=== PATIENT | female | born 1950 | race Caucasian/White ===

== ENCOUNTER 2017-01-19 21:16 | Observation (INO) | payer MEDICARE, OTHER ==
[~2017-01-19 21:16] MED LIST: ISOVUE-370 76%-LOCM 1 ML ONE
[2017-01-19 21:47] LABS: #Eosinphils 0.1 thou/uL (0.0-0.7); #Lymphocytes 1.7 thou/uL (1.20-3.40); #Monocytes 0.5 thou/uL (0.11-0.59); #Neutrophils 6.3 thou/uL (1.40-6.50); %Basophils 0.5 % (0.0-1.0); %Eosinophils 1.4 % (0.0-10.0); %Lymphocytes 20.1 % (21.0-51.0); %Monocytes 5.3 % (0.0-10.0); Hematocrit 36.9 % (36.0-47.0); Mean Platelet Volume 9.8 fL (7.4-10.4); Red Blood Cell (RBC) Count 4.28 mill/uL (4.20-5.40); White Blood Cell (WBC) Count 8.7 thou/uL (4.8-10.8)
[2017-01-19] MEDS ORDERED: Ondansetron HCl/PF 4 MG/2 ML Vial ONE (21:56)
[2017-01-19 21:57] LABS: ALT (SGPT) 34 U/L (8-55); AST (SGOT) 36 U/L (5-34); Alkaline Phosphatase 139 U/L (40-150); Anion Gap 19 mmol/L (10-20); BUN (Urea Nitrogen) 21 mg/dL (9.8-20.1); Bilirubin, Total 0.5 mg/dL (0.2-1.2); Calc. Creatinine Clearance 0 mL/min (70-130); Calcium 9.1 mg/dL (7.8-10.44); Carbon Dioxide 19 mmol/L (23-31); Chloride 105 mmol/L (98-107); Estimated GFR-MDRD 23; Globulin 3.5 g/dL (2.4-3.5); Lipase 30 U/L (8-78); Protein, Total 7.6 g/dL (6.0-8.3)
[2017-01-19 22:02] LABS: Troponin I Less than 0.010 ng/mL (< 0.028)
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
[2017-01-19 22:24] LABS: Prothrombin Time 12.1 SEC (12.0-14.7)
--- NOTE | 2017-01-19 22:24 | CT ---
CHEST CT SCAN WITH IV CONTRAST ABDOMEN AND PELVIC CT SCAN WITH IV CONTRAST THORACIC SPINE CT SCAN WITH IV CONTRAST LIMITED LUMBAR SPINE CT SCAN WITH IV CONTRAST LIMITED 01/19/17 HISTORY: 66-year-old female with left sided pain, shortness of breath. There appears to be some increased soft tissue density over the region of the medial aspect of the l eft clavicle. The left clavicle is not completely seen on this study but the visualized portion at t he sternoclavicular joint does not show an obvious acute fracture. There is no mediastinal hematoma. No pneumothorax or other significant acute posttraumatic process in the chest. The liver, pancreas, spleen are unremarkable. The kidneys show some small cysts and some small renal cortical scars but no evidence for acute posttraumatic process. No free intraperitoneal fluid or re troperitoneal hematoma. Postop changes are noted of the lower lumbar spine including L3, L4, L5 and S1. IMPRESSION: Some soft tissue swelling at the region of the medial clavicle but without an obvious fracture altho ugh the complete clavicle is not seen. Some small renal cysts and some renal cortical scarring but n o evidence for acute posttraumatic process in the chest, abdomen, or pelvis. THORACIC SPINE CT SCAN WITH IV CONTRAST LIMITED: IMPRESSION: Extensive multilevel disc osteophytosis throughout the thoracic spine particularly caudally but no e vidence for an acute fracture. LUMBAR SPINE CT SCAN WITH IV CONTRAST LIMITED: Status post laminectomy and pedicle screw placement changes at L3, L4, L5, and S1. Considerable cierra ccation changes in the L1-L2 and L2-L3 discs. Severe facet arthrosis. No evidence for acute fracture or dislocation. IMPRESSION: Postop laminectomy and pedicle screw placement changes at L3, L4, L5, and S1. Severe lumbar spine sp ondylosis. No evidence for acute fracture. Findings of the cervical spine CT scan as well as the chest, abdomen and pelvic CT scan were discuss ed with Dr. Valenzuela by phone at 10:08 p.m. Code CR POS: [facility]
--- NOTE | 2017-01-19 23:07 | RAD ---
LEFT SHOULDER THREE VIEWS: 01/19/17 HISTORY: 66-year-old female with left shoulder pain. There appears to be some soft tissue swelling over the left supraclavicular region. No evidence for acute fracture or dislocation. IMPRESSION: Left supraclavicular soft tissue swelling without overt acute fracture or dislocation. POS: [facility]
[2017-01-19] MEDS ORDERED: traMADol HCl 50 MG TAB ONE (23:25)
[2017-01-20 01:29] LABS: Bilirubin Negative (Negative); Blood, Urine Negative (Negative); Glucose, Urine (Dipstick) >=1000 mg/dL (Negative); Ketone, Urine Negative (Negative); Nitrite Negative (Negative); Protein, Urine (Dipstick) Negative (Neg-Trace); Urobilinogen 0.2 mg/dL (0.2-1.0)
[2017-01-20 01:31] LABS: Bacteria/HPF None Seen HPF (None Seen); Hyaline Casts/LPF 0-3 HYALINE CAST LPF (0-3 Hyaline); RBC/HPF 0-3 HPF (0-3); Squamous Epithelial None Seen HPF (0-3); WBC/HPF 0-3 HPF (0-3)
[2017-01-20] MEDS ORDERED: HYDROcodone/Acetaminophen 5/325 mg Tablet PO PRN (02:56)
[2017-01-20] MEDS ORDERED: Morphine Sulfate 2 MG/ML SYRINGE IVP PRN (02:56)
[2017-01-20] MEDS ORDERED: traMADol HCl 50 MG TAB PO PRN (02:56)
[2017-01-20] MEDS ORDERED: Acetaminophen 500 MG TAB PO PRN ×2 (02:56→07:45)
[2017-01-20] MEDS ORDERED: Ondansetron HCl/PF 4 MG/2 ML Vial IVP PRN (02:56)
[2017-01-20] MEDS ORDERED: Dextrose 5% in Water 1,000 ML IV PRN (02:56)
[2017-01-20] MEDS ORDERED: Dextrose 50% Abboject 50 ML SYRINGE SLOW IVP PRN (02:56)
[2017-01-20] MEDS ORDERED: Ondansetron ODT 4 MG TAB PO PRN (02:56)
[2017-01-20] MEDS: Sodium Chloride 0.9% 1,000 ML IV SCH ×3 (03:24→04:15)
[2017-01-20 03:53] VITALS: BMI 30.2
[2017-01-20] MEDS: Insulin Regular 300 UNITS/3 ML VIAL SC PRN ×2 (05:52→10:57)
[2017-01-20 08:24] VITALS: BP 112/71; TEMP 98.1
[2017-01-20 09:56] LABS: #Basophils 0.1 thou/uL (0.0-0.2); #Eosinphils 0.1 thou/uL (0.0-0.7); #Lymphocytes 1.2 thou/uL (1.20-3.40); #Monocytes 0.6 thou/uL (0.11-0.59); #Neutrophils 5.9 thou/uL (1.40-6.50); %Basophils 0.7 % (0.0-1.0); %Eosinophils 0.9 % (0.0-10.0); %Lymphocytes 15.6 % (21.0-51.0); %Monocytes 7.9 % (0.0-10.0); Hematocrit 35.4 % (36.0-47.0); Mean Platelet Volume 9.3 fL (7.4-10.4); Red Blood Cell (RBC) Count 4.04 mill/uL (4.20-5.40); White Blood Cell (WBC) Count 7.9 thou/uL (4.8-10.8)
[2017-01-20 10:29] LABS: Anion Gap 15 mmol/L (10-20); BUN (Urea Nitrogen) 22 mg/dL (9.8-20.1); Calc. Creatinine Clearance 67 mL/min (70-130); Calcium 8.6 mg/dL (7.8-10.44); Carbon Dioxide 20 mmol/L (23-31); Chloride 106 mmol/L (98-107); Estimated GFR-MDRD 41
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
== END 2017-01-20 12:08 | disposition home or self-care (01) ==
LOC: ERS 21:16 → SURG A 01-20 01:46
PROVIDERS: ADMIT Specialist; ATTEND Specialist
DX: T14.8 Other injury of unspecified body region (principal); G89.11 Acute pain due to trauma; N28.9 Disorder of kidney and ureter, unspecified; I10 Essential (primary) hypertension; E11.36 Type 2 diabetes mellitus with diabetic cataract; Z91.040 Latex allergy status; Z88.8 Allergy status to other drugs, medicaments and biological substances; Z98.890 Other specified postprocedural states; Z90.710 Acquired absence of both cervix and uterus; Z96.651 Presence of right artificial knee joint; V89.2XXA Person injured in unspecified motor-vehicle accident, traffic, initial encounter
CPT/HCPCS: 71260; 72125; 73030; 74176; 74177; 80048; 80053; 82553; 82962; 83690; 84484; 85025 ×2; 85610; 85730; 93005; 96361; 96374; 99285; G0378; 36415; 36416; 81003; 81015; G0390; J2405

== ENCOUNTER 2017-12-10 06:53 | Day surgery (SDC) | payer MEDICARE ==
[2017-12-09 14:59] VITALS: BMI 29.1
--- NOTE | 2017-12-10 05:38 | HP ---
SHORT STAY AND HISTORY AND PHYSICAL HISTORY OF PRESENT ILLNESS: Ms. Jessenia Murillo is a very pleasant 67-year-old female wit h history of colon polyp with previous polypectomy. The patient has no specific GI symptoms at the p resent time. The patient came here for colonoscopy last year, but the exam was suboptimal because of retained stool. The patient had a very large polyp taken out in the past. However, because of poor prep, the exam was somewhat suboptimal. The patient brought in today for repeat colonoscopy because of the history of colon polyp and also history of rectal bleeding. ALLERGIES: ASPIRIN and also allergic to ADHESIVE BANDAGES. MEDICAL ILLNESSES: 1. Hypertension. 2. Diabetes mellitus. 3. Hyperlipidemia. 4. Bleeding peptic ulcer in the past. 5. Colon polyp. PHYSICAL EXAMINATION: VITAL SIGNS: Pulse is 70, blood pressure 130/80. HEENT: Conjunctivae clear. CARDIOVASCULAR SYSTEM: First and second heart sounds normal. LUNGS: Clear to auscultation. ABDOMEN: Soft to palpate. No organomegaly. No tenderness. No masses. ADMITTING DIAGNOSIS: A 67-year-old female with history of colon polyps and also rectal ble eding. PLAN: Colonoscopy.
--- NOTE | 2017-12-10 10:28 | OP ---
DATE OF PROCEDURE: 12/10/2017 PREOPERATIVE DIAGNOSIS: Colon polyp. POSTOPERATIVE DIAGNOSES: 1. Sessile polyp, splenic flexure. 2. Sessile polyp, sigmoid colon. 3. Hemorrhoids. OPERATIVE PROCEDURE: Colonoscopy with polypectomy. PROCEDURE NOTE: The patient was placed on left lateral position and was given sedation by the Anesth esia Department. A rectal exam was done before the scope was advanced into the rectum. No lesion fe lt on rectal exam. A Pentax video colonoscope was introduced into the rectum and advanced all the wa y into the cecum. The prep was very good. The mucosa appears normal throughout the colon with filiberto l vascular pattern. The appendiceal orifice, ileocecal valve, cecum, no pathology seen. The ascendi ng colon, hepatic flexure, and transverse colon, no pathology seen. A sessile polyp in the splenic f lexure removed with snare cautery with good hemostasis. The descending colon, no pathology seen. A sessile polyp over the sigmoid colon removed with snare cautery with good hemostasis. Retroflexion o f the scope in the rectum showed small hemorrhoids. DISCHARGE PLANNING: This is a 67-year-old female with previous colonoscopy and polypectomy . The patient came for a followup colonoscopy. She underwent colonoscopy and polypectomy x2. DISCHARGE RECOMMENDATIONS: 1. The patient advised to call me if she developed abdominal pain, hematochezia or fever. 2. In the absence of any of the above symptoms, she is to come back to me in 2 weeks.
[2017-12-10] MEDS ORDERED: Glycopyrrolate 0.2 MG/ML 5 ML SYRINGE ONE (13:43)
[2017-12-10] MEDS ORDERED: ePHEDrine/0.9% NaCl/PF SYRINGE 50 mg/10 ml ONE (13:43)
[2017-12-10] MEDS ORDERED: PROPOFOL 200 MG/20 ML VIAL ONE (13:43)
[2017-12-10] MEDS ORDERED: Lidocaine 1% PF 5 ML VIAL ONE (13:43)
== END 2017-12-10 10:31 | disposition home or self-care (01) ==
LOC: SDC 06:53
PROVIDERS: ATTEND Internal Medicine Gastroenterology
PROC: 0DBH8ZX Excision of Cecum, Via Natural or Artificial Opening Endoscopic, Diagnostic (ICD-10-PCS; principal; 2017-12-10)
PROC: 0DBL8ZX Excision of Transverse Colon, Via Natural or Artificial Opening Endoscopic, Diagnostic (ICD-10-PCS; 2017-12-10)
DX: Z09 Encounter for follow-up examination after completed treatment for conditions other than malignant neoplasm (principal); D12.3 Benign neoplasm of transverse colon; D12.5 Benign neoplasm of sigmoid colon; K64.9 Unspecified hemorrhoids; I10 Essential (primary) hypertension; E11.9 Type 2 diabetes mellitus without complications; E78.5 Hyperlipidemia, unspecified; Z86.010 Personal history of colon polyps; Z79.4 Long term (current) use of insulin; Z79.899 Other long term (current) drug therapy; Z88.8 Allergy status to other drugs, medicaments and biological substances; Z91.040 Latex allergy status; Z98.890 Other specified postprocedural states
CPT/HCPCS: 88305; J2001; J2704

== ENCOUNTER 2018-10-16 09:48 | Outpatient (CLI) | payer MEDICARE ==
--- NOTE | 2018-10-16 11:27 | ULT ---
RENAL ULTRASOUND: HISTORY: Chronic renal disease. FINDINGS: Multiple longitudinal and transverse images of the kidneys are obtained using MultiHertz curvilinear transducer. Real-time, color flow and spectral waveform Doppler analysis demonstrates the right kidney to measure 10.0 and left kidney 10.6 cm from pole to pole. No evidence of renal parenchymal masses or lesions seen. Resistive indices on the right measures 0.7 and on the left 0.8. This may represent left renal artery stenosis. Correlate with CT angiography. The urinary bladder is unremarkable. IMPRESSION: Elevated resistive index on the left possibly presenting renal artery stenosis. Correlate with CT ang iography. Transcribed Date/Time: 10/16/2018 11:35 AM
--- NOTE | 2018-10-16 11:40 | MMO ---
Bilateral MAMMO Bilat Screen [facility]. CLINICAL HISTORY: Patient is 68 years old and is seen for screening. The patient has no family history of breast cancer. The patient has no personal history of cancer. VIEWS: The views performed were: bilateral craniocaudal with tomosynthesis and bilateral mediolateral oblique with tomosynthesis. FILMS COMPARED: The present examination has been compared to prior imaging studies performed at [facility] on 04/28/2015 and 12/19/2016. MAMMOGRAM FINDINGS: There are scattered fibroglandular densities. Finding 1: There are stable benign appearing calcifications seen in both breasts. Finding 2: There are stable focal asymmetries seen in both breasts. There are no suspicious masses, suspicious calcifications, or new areas of architectural distortion. IMPRESSION: THERE IS NO MAMMOGRAPHIC EVIDENCE OF MALIGNANCY. A ROUTINE FOLLOW-UP MAMMOGRAM IN 1 YEAR IS RECOMMENDED. THE RESULTS OF THIS EXAM WERE SENT TO THE PATIENT. ACR BI-RADS Category 2 - Benign finding MAMMOGRAPHY NOTE: 1. A negative mammogram report should not delay a biopsy if a dominant of clinically suspicious mass is present. 2. Approximately 10% to 15% of breast cancers are not detected by mammography. 3. Adenosis and dense breasts may obscure an underlying neoplasm.
--- NOTE | 2018-10-16 11:41 | RAD ---
Exam: Chest one view HISTORY:Hypertension, chronic kidney disease, stage III Comparison: None FINDINGS: Lungs: There are biapical parenchymal opacities, left greater than right Cardiac silhouette: Normal size Pulmonary vessels: Normal Pleural Spaces: Clear Pneumothorax: None Osseous abnormalities: None of acuity. IMPRESSION: Biapical opacities, left greater than right. Findings are nonspecific. Considerations wou ld include atypical pneumonia, interval development of apical pleural thickening/scarring, or alternatively pneumoconiosis given bilateral upper lobe distribution. Recommend short-term follow-up upon completion of treatment regimen with 2 view chest for continued assessment. CODE T
--- NOTE | 2018-10-16 14:50 | BD ---
DEXA BONE DENSITY EXAM: COMPARISON: 12/19/2016. HISTORY: A 68-year-old postmenopausal female for screening. FINDINGS: BMD (g/cm2) LEFT: Femoral Neck: 0.832 T-Score: -0.2 Total Proximal Femur: 1.038 T-Score: 0.8 RIGHT: Femoral Neck: 0.706 T-Score: -1.3 Total Proximal Femur: 0.974 T-Score: 0.3 Impression: Osteopenia. This patient has a 10-year WHO fracture risk of a major osteoporotic fracture of 18% and of a hip fracture of 2.4%. When compared to the prior examination, bone density in the right hip ibarra s increased approximately 6%. The bone density in the left hip has not changed significantly. POS: [facility]
== END 2018-10-16 09:49 | disposition home or self-care (01) ==
LOC: BICULT 09:48
PROVIDERS: ATTEND Internal Medicine Nephrology
DX: Z12.31 Encounter for screening mammogram for malignant neoplasm of breast (principal); I12.9 Hypertensive chronic kidney disease with stage 1 through stage 4 chronic kidney disease, or unspecified chronic kidney disease; N18.3 Chronic kidney disease, stage 3 (moderate); D63.1 Anemia in chronic kidney disease; J98.4 Other disorders of lung; M85.89 Other specified disorders of bone density and structure, multiple sites
CPT/HCPCS: 71045; 76700; 76770; 77063; 77067; 77080

== ENCOUNTER 2018-11-19 13:32 | Outpatient (CLI) | payer MEDICARE ==
--- NOTE | 2018-11-19 15:18 | CT ---
CT OF THE CHEST WITHOUT CONTRAST: 11/19/18 COMPARISON: Chest x-ray 10/16/18. Mammograms of 10/16/18 and 12/19/16. HISTORY: Abnormal chest x-ray. TECHNIQUE: Multiple contiguous axial images were obtained in a CT of the chest without contrast. Sagittal and co jag reformats were performed. FINDINGS: The lungs are normal in appearance without focal infiltrates or masses. No pneumothorax or pleural ef fusion are seen. The heart is normal in size. Atherosclerotic calcifications seen in the coronary arteries. No hilar o r mediastinal lymphadenopathy are appreciated on this limited noncontrast examination. Degenerative changes are seen in the spine. There is a remote healed fracture of the medial left clav icle. Hypertrophic bone is also seen at the sternoclavicular joint on the left in the region of the f irst rib. The visualized subdiaphragmatic structures are unremarkable. There is a stable asymmetry in the upper outer left breast which is seen on mammography and likely represents focal asymmetric breast tissue. This remains stable compared to mammograms dating back to 2017. IMPRESSION: No significant intrathoracic abnormality. POS: [facility]
== END 2018-11-19 13:33 | disposition home or self-care (01) ==
LOC: BICCT 13:32
PROVIDERS: ATTEND Internal Medicine Critical Care Medicine
DX: J18.9 Pneumonia, unspecified organism (principal)
CPT/HCPCS: 71250

== ENCOUNTER 2021-09-18 09:52 | Outpatient (CLI) | payer MEDICARE | END 2021-09-18 09:53 | disposition home or self-care (01) | LOC: BICMAMMO 09:52 | PROVIDERS: ATTEND Family Medicine | DX: Z12.31 Encounter for screening mammogram for malignant neoplasm of breast (principal) | CPT/HCPCS: 77063; 77067 ==

== ENCOUNTER 2021-09-18 17:48 | Emergency (ER) | payer OTHER, MEDICARE ==
[2021-09-18] MEDS ORDERED: Boostrix 0.5 ML (Tdap) VIAL ONE (18:04)
== END 2021-09-18 19:44 | disposition home or self-care (01) ==
LOC: ERS 17:48
DX: S00.31XA Abrasion of nose, initial encounter (principal); S80.212A Abrasion, left knee, initial encounter; E11.9 Type 2 diabetes mellitus without complications; I10 Essential (primary) hypertension; Z79.4 Long term (current) use of insulin; Z79.899 Other long term (current) drug therapy; Z23 Encounter for immunization; W01.10XA Fall on same level from slipping, tripping and stumbling with subsequent striking against unspecified object, initial encounter
CPT/HCPCS: 70450; 70486; 72125; 90471; 90715

== ENCOUNTER 2022-03-01 17:14 | Emergency (ER) | payer MEDICARE ==
[2022-03-01 17:40] LABS: #Eosinphils 0.1 thou/uL (0.0-0.7); #Lymphocytes 1.7 thou/uL (1.20-3.40); #Monocytes 0.6 thou/uL (0.11-0.59); #Neutrophils 7.1 thou/uL (1.40-6.50); %Basophils 0.2 % (0.0-1.0); %Eosinophils 0.6 % (0.0-10.0); %Lymphocytes 17.7 % (21.0-51.0); %Monocytes 6.1 % (0.0-10.0); %Neutrophils 75.5 % (42.0-75.0); Hemoglobin 12.8 g/dL (12.0-16.0); Mean Corpuscular HGB CONC 31.9 g/dL (32.0-36.0); Mean Corpuscular Hemoglobin 30.5 pg (27.0-31.0); Mean Corpuscular Volume 95.8 fL (78.0-98.0); Mean Platelet Volume 9.5 fL (7.4-10.4); Platelet Count 131 thou/uL (130-400); RBC Distribution Width 12.5 % (11.5-14.5); Red Blood Cell (RBC) Count 4.18 mill/uL (4.20-5.40); White Blood Cell (WBC) Count 9.4 thou/uL (4.8-10.8)
[2022-03-01 18:09] LABS: ALT (SGPT) 112 U/L (8-55); AST (SGOT) 29 U/L (5-34); Albumin 3.9 g/dL (3.4-4.8); Alkaline Phosphatase 137 U/L (40-110); Anion Gap 10 mmol/L (10-20); BUN (Urea Nitrogen) 24 mg/dL (9.8-20.1); Bilirubin, Total 0.6 mg/dL (0.2-1.2); Calc. Creatinine Clearance 0 mL/min (70-130); Calcium 8.8 mg/dL (7.8-10.44); Carbon Dioxide 26 mmol/L (23-31); Chloride 102 mmol/L (98-107); Estimated GFR 45; Globulin 2.5 g/dL (2.4-3.5); Glucose 340 mg/dL (83-110); Potassium 4.2 mmol/L (3.5-5.1); Protein, Total 6.4 g/dL (5.8-8.1); Sodium 134 mmol/L (136-145)
[2022-03-01 22:12] LABS: Bilirubin Negative (Negative); Blood, Urine 2+ (Negative); Clarity Turbid (Clear); Glucose, Urine (Dipstick) >=1000 mg/dL (Negative); Ketone, Urine Negative (Negative); Leukocyte 500 Leu/uL (Negative); Mucous/LPF Rare LPF (<2+); Nitrite Negative (Negative); Protein, Urine (Dipstick) 20 mg/dL (Neg-Trace); Specific Gravity, Urine 1.022 (1.002-1.036); Squamous Epithelial 0-3 HPF (0-3); Urobilinogen Normal mg/dL (Less than 2); WBC/HPF Greater than 50 HPF (0-3)
[2022-03-01 22:17] LABS: Bacteria/HPF 1+ HPF (None Seen)
[2022-03-01] MEDS ORDERED: Morphine 4 MG/ML VIAL ONE (22:47)
[2022-03-01] MEDS ORDERED: Ondansetron PF 4 MG/2 ML Vial ONE (22:48)
== END 2022-03-01 22:53 | disposition home or self-care (01) ==
LOC: ERS 17:14
DX: N39.0 Urinary tract infection, site not specified (principal); I10 Essential (primary) hypertension; E11.9 Type 2 diabetes mellitus without complications; Z79.899 Other long term (current) drug therapy; Z79.84 Long term (current) use of oral hypoglycemic drugs
CPT/HCPCS: 36415; 80053; 81003; 81015; 85025; 99283; J2270; J2405

== ENCOUNTER 2022-05-24 12:22 | Emergency (ER) | payer MEDICARE ==
[2022-05-24 13:31] LABS: Bilirubin Negative (Negative); Blood, Urine Trace (Negative); Glucose, Urine (Dipstick) 250 mg/dL (Negative); Ketone, Urine Trace mg/dL (Negative); Leukocyte Moderate (Negative); Nitrite Negative (Negative); Protein, Urine (Dipstick) 100 mg/dL (Neg-Trace); Urobilinogen 0.2 mg/dL (Less than 2); pH, Urine 6.5 (5.0-9.0)
[2022-05-24 13:32] LABS: Clarity Turbid (Clear)
[2022-05-24 13:35] LABS: Bacteria/HPF 4+ HPF (None Seen); RBC/HPF 0-3 HPF (0-3); Squamous Epithelial 0-3 HPF (0-3); Transitional Epithelial 0-3 HPF (None Seen); WBC/HPF Greater than 50 HPF (0-3)
[2022-05-24 13:40] LABS: #Eosinphils 0.3 thou/uL (0.0-0.7); #Lymphocytes 1.8 thou/uL (1.20-3.40); #Monocytes 0.3 thou/uL (0.11-0.59); #Neutrophils 4.4 thou/uL (1.40-6.50); %Basophils 0.3 % (0.0-1.0); %Eosinophils 4.1 % (0.0-10.0); %Lymphocytes 25.9 % (21.0-51.0); %Neutrophils 64.7 % (42.0-75.0); Hemoglobin 12.7 g/dL (12.0-16.0); Mean Corpuscular HGB CONC 33.3 g/dL (32.0-36.0); Mean Corpuscular Hemoglobin 30.9 pg (27.0-31.0); Mean Corpuscular Volume 92.6 fl (78.0-98.0); Mean Platelet Volume 9.4 fL (7.4-10.4); Platelet Count 147 10x3/uL (130-400); Red Blood Cell (RBC) Count 4.13 mill/uL (4.20-5.40); White Blood Cell (WBC) Count 6.8 10x3/uL (4.8-10.8)
[2022-05-24 14:01] LABS: ALT (SGPT) 55 U/L (8-55); AST (SGOT) 40 U/L (5-34); Albumin 3.9 g/dL (3.4-4.8); Alkaline Phosphatase 109 U/L (40-110); Anion Gap 10 mmol/L (10-20); BUN (Urea Nitrogen) 20 mg/dL (9.8-20.1); Bilirubin, Total 0.6 mg/dL (0.2-1.2); Calc. Creatinine Clearance 0 mL/min (70-130); Calcium 8.9 mg/dL (7.8-10.44); Carbon Dioxide 26 mmol/L (23-31); Chloride 107 mmol/L (98-107); Estimated GFR 53; Globulin 2.7 g/dL (2.4-3.5); Glucose 222 mg/dL (83-110); Potassium 4.3 mmol/L (3.5-5.1); Protein, Total 6.6 g/dL (5.8-8.1); Sodium 139 mmol/L (136-145)
== END 2022-05-24 14:08 | disposition home or self-care (01) ==
LOC: ERS 12:22
DX: N39.0 Urinary tract infection, site not specified (principal); B37.9 Candidiasis, unspecified; E11.9 Type 2 diabetes mellitus without complications; I10 Essential (primary) hypertension; Z79.84 Long term (current) use of oral hypoglycemic drugs; Z79.899 Other long term (current) drug therapy
CPT/HCPCS: 36415; 80053; 81003; 81015; 85025; 87077; 87086; 87186; 99283